=== PATIENT | female | born 1985 | race Caucasian/White ===

== ENCOUNTER 2023-02-17 04:10 | Emergency (ER) | payer BC, SELFPAY ==
[2023-02-17] MEDS ORDERED: Ketorolac Tromethamine 30 MG/ML VIAL ONE (04:36)
[2023-02-17] MEDS ORDERED: Metoclopramide HCl 10 MG/2 ML VIAL ONE (04:36)
[2023-02-17] MEDS ORDERED: SUMAtriptan Succinate 6 MG/0.5 ML VIAL ONE (04:36)
[2023-02-17] MEDS ORDERED: diphenhydrAMINE 50 MG/ML VIAL ONE (04:37)
[2023-02-17] MEDS ORDERED: levETIRAcetam 500 MG/5 ML VIAL ONE (04:52)
[2023-02-17 05:31] LABS: SARS-CoV-2 NAA Rapid Test Not Detected (NotDetected)
== END 2023-02-17 06:30 | disposition home or self-care (01) ==
LOC: CSHERS 04:10
DX: G43.809 Other migraine, not intractable, without status migrainosus (principal); Z20.822 Contact with and (suspected) exposure to COVID-19; Z79.899 Other long term (current) drug therapy
CPT/HCPCS: 96372; 96374; 96375; J1200; J1885; J1953; J2765; J3030

== ENCOUNTER 2023-04-04 14:24 | Emergency (ER) | payer SELFPAY ==
[2023-04-04 15:34] LABS: SARS-CoV-2 NAA Rapid Test Not Detected (NotDetected)
[2023-04-04] MEDS ORDERED: methylPREDNISolone Sod Succ/PF 125 MG/2 ML VIAL ONE (15:42)
[2023-04-04] MEDS ORDERED: Metoclopramide HCl 10 MG/2 ML VIAL ONE (15:43)
[2023-04-04] MEDS ORDERED: diphenhydrAMINE 50 MG/ML VIAL ONE (15:43)
== END 2023-04-04 17:53 | disposition home or self-care (01) ==
LOC: CSHERS 14:24
DX: J10.1 Influenza due to other identified influenza virus with other respiratory manifestations (principal)
CPT/HCPCS: 70450; 96374; 96375; J1200; J2765; J2930